=== PATIENT | female | born 1995 | race Caucasian/White ===

== ENCOUNTER 2021-12-20 11:03 | Emergency (ER) | payer OTHER ==
[2021-12-20] MEDS ORDERED: SENNA-S 8.6-501 EACH PO (12:29)
[2021-12-20] MEDS ORDERED: MIRALAX 238GM238 GM PO (12:29)
== END 2021-12-20 13:05 | disposition home or self-care (01) ==
LOC: FER 11:03
DX: K59.00 Constipation, unspecified (principal)
CPT/HCPCS: 99283